=== PATIENT | male | born 1955 | race Caucasian/White ===

== ENCOUNTER 2016-08-10 09:43 | Outpatient (CLI) | payer OTHER ==
[2013-11-27 10:36] VITALS: BP 156/96
== END 2016-08-10 09:44 ==
LOC: LABRHC 09:43
PROVIDERS: ATTEND Physician Assistant
DX: R30.0 Dysuria (principal)
CPT/HCPCS: 87086

== ENCOUNTER 2016-08-24 09:24 | Outpatient (CLI) | payer OTHER ==
[2013-11-27 10:36] VITALS: BP 156/96
[2016-08-24 10:12] LABS: eGFR (African) > 60; eGFR (Non-African) > 60
== END 2016-08-24 09:25 ==
LOC: LAB 09:24
PROVIDERS: ATTEND Family Medicine
DX: E11.9 Type 2 diabetes mellitus without complications (principal)
CPT/HCPCS: 36415; 80053; 80061; 82043; 83036

== ENCOUNTER 2017-07-23 11:46 | Outpatient (CLI) | payer OTHER ==
[2013-11-27 10:36] VITALS: BP 156/96
[2017-07-23 12:50] LABS: eGFR (African) > 60; eGFR (Non-African) > 60
--- NOTE | 2017-07-23 20:27 | Diagnostic Imaging Report ---
[facility] [address] [facility].[address] [address] Report Submission Date: July 23, 2017 12:27:30 PM CDT Patient Study Name: KEE BUITRAGO Date: July 23, 2017 12:02:28 PM CDT Modality Type: DX Gender: M Description: SHOULDER : 59 Institution: [facility] Physician: ANTHONY TORRES Examination: Plain film left shoulder History: LEFT SHOULDER, CHRONIC PAIN IN LEFT SHOULDER X1 YEAR, NO KNOWN INJURY ( Hx) Comparison exams: None provided Findings: 2 views of the left shoulder demonstrate normal cortical margins. No evidence for fracture or dislocation. Acromioclavicular joint degenerative changes. No soft tissue abnormality. Impression: Acromioclavicular joint degenerative changes. No acute osseous process. Electronically signed on July 23, 2017 12:27:30 PM CDT by: Sahil RIOS
== END 2017-07-23 11:47 ==
LOC: LAB 11:46
PROVIDERS: ATTEND Family Medicine
DX: E11.9 Type 2 diabetes mellitus without complications (principal); Z71.89 Other specified counseling; R53.82 Chronic fatigue, unspecified; M25.512 Pain in left shoulder
CPT/HCPCS: 36415; 73030; 80053; 82043; 83036; 84403; 84443

== ENCOUNTER → 2017-08-09 | Outpatient (CLI) | payer OTHER ==
[2013-11-27 10:36] VITALS: BP 156/96
[2017-08-09 16:41] LABS: APPEARANCE,URINE CLEAR (CLEAR); COLOR,URINE YELLOW (YELLOW); OCCULT BLOOD,URINE NEGATIVE (NEGATIVE); PH URINE 5.5 (5.0 - 8.0); UROBILINOGEN URINE 0.2 Eu (0.2-1.0)
== END ==
LOC: LABRHC 16:35
PROVIDERS: ATTEND Physician Assistant
DX: R10.9 Unspecified abdominal pain (principal)
CPT/HCPCS: 81002

== ENCOUNTER 2018-03-08 13:26 | Outpatient (CLI) | payer OTHER ==
[2013-11-27 10:36] VITALS: BP 156/96
[2018-03-08 15:07] LABS: eGFR (Non-African) > 60
== END 2018-03-08 14:00 ==
LOC: LAB 13:26
PROVIDERS: ATTEND Family Medicine
DX: E11.9 Type 2 diabetes mellitus without complications (principal); I10 Essential (primary) hypertension
CPT/HCPCS: 80053; 80061; 83036

== ENCOUNTER 2018-07-05 14:02 | Outpatient (CLI) | payer OTHER ==
[2013-11-27 10:36] VITALS: BP 156/96
--- NOTE | 2018-07-05 14:54 | Diagnostic Imaging Report ---
ANTHONY TORRES [facility] [address] [facility].[address] [id number] Report Submission Date: Jul 05, 2018 2:29:46 PM CDT Patient Study Name: KEE BUITRAGO Date: Jul 05, 2018 2:08:00 PM CDT Modality Type: DX Gender: M Description: SHOULDER 2 VIEWS OR MORE : 59 Institution: [facility] Physician: ANTHONY TORRES EXAMINATION: SHOULDER 2 VIEWS OR MORE HISTORY: FALL, LIMITED ROM COMPARISON: None FINDINGS: The osseous structures are intact without acute fracture. The glenohumeral and acromioclavicular joints are in anatomic alignment with maintained joint spaces. IMPRESSION: No acute fracture or dislocation identified. Electronically signed on Jul 05, 2018 2:29:46 PM CDT by: Ike RIOS
== END 2018-07-05 14:04 ==
LOC: RAD 14:02
PROVIDERS: ATTEND Family Medicine
DX: M25.512 Pain in left shoulder (principal)
CPT/HCPCS: 73030

== ENCOUNTER 2018-09-13 13:49 | Outpatient (CLI) | payer OTHER ==
[2013-11-27 10:36] VITALS: BP 156/96
[2018-09-13 14:39] LABS: eGFR (Non-African) > 60
[2018-09-13 14:40] LABS: HDL 61 mg/dL (>40)
== END 2018-09-13 13:50 ==
LOC: LAB 13:49
PROVIDERS: ATTEND Family Medicine
DX: E11.9 Type 2 diabetes mellitus without complications (principal)
CPT/HCPCS: 36415; 80053; 80061; 82043; 83036